=== PATIENT | male | born 1950 | race Caucasian/White ===

== ENCOUNTER 2018-11-18 05:39 | Inpatient (IN) | payer MEDICARE, BC ==
[2018-11-18 06:52] LABS: ADD MAN DIFF? NO
[2018-11-18] MEDS ORDERED: HEPARIN 1000 UNITS/ML 10 ML INJ (06:54)
[2018-11-18] MEDS ORDERED: VERAPAMIL 5 MG INJ (06:54)
[2018-11-18] MEDS ORDERED: NITROGLYCERIN (IC) 100 MCG/ML INJ (06:54)
[2018-11-18] MEDS ORDERED: IODIXANOL LOCM 100 ML BTL ×2 (06:54→11:19)
[2018-11-18] MEDS ORDERED: LIDOCAINE 1% (MDV) 20 ML INJ (06:54)
[2018-11-18 06:55] LABS: BASOPHILS % 0.7 % (0.0-2.0); EOSINOPHILS # 0.4 10^3/ul (0.0-0.5); EOSINOPHILS % 6.3 % (0.0-7.0); HEMATOCRIT 49.1 % (42.0-52.0); HEMOGLOBIN 16.9 g/dl (14.0-18.0); LYMPHOCYTES # 2.2 10^3/ul (0.8-2.9); MEAN CORPUSCULAR HEMOGLOBIN 31.6 pg (29.0-33.0); MEAN CORPUSCULAR HGB CONC 34.4 g/dl (32.0-37.0); MEAN CORPUSCULAR VOLUME 91.8 fl (82.0-101.0); MEAN PLATELET VOLUME 11.4 fl (7.4-10.4); MONOCYTE # 0.4 10^3/ul (0.3-0.9); MONOCYTES % 7.4 % (0.0-11.0); NEUTROPHIL # 2.7 10^3/ul (1.6-7.5); NEUTROPHILS % 47.1 % (39.0-77.0); PLATELET COUNT 174 10^3/UL (140-415); RED BLOOD COUNT 5.35 10^6/ul (4.70-6.10); RED CELL DISTRIBUTION WIDTH 12.2 % (11.5-14.5)
[2018-11-18 06:55] LABS: WHITE BLOOD COUNT 5.7 10^3/ul (4.8-10.8)
[2018-11-18 07:02] LABS: ANION GAP 10 (5-13); BLOOD UREA NITROGEN 16 mg/dl (7-20); CALCIUM 9.4 mg/dl (8.4-10.2); CARBON DIOXIDE 23 mmol/L (21-31); CHLORIDE 107 mmol/L (97-110); CREATININE 0.75 mg/dl (0.61-1.24); Estimated GFR > 60 mL/min (>60); GLUCOSE 116 mg/dl (70-220); POTASSIUM 4.3 mmol/L (3.5-5.1); SODIUM 140 mmol/L (135-144)
[2018-11-18] MEDS ORDERED: MIDAZOLAM 1 MG/ML 2 ML INJ (07:24)
[2018-11-18 07:31] LABS: INR 0.94; PARTIAL THROMBOPLASTIN TIME 32.7 Sec (23.0-35.0); PROTIME 12.7 Sec (11.9-14.9)
[2018-11-18] MEDS ORDERED: BIVALIRUDIN 250MG /NS 50 ML 50 ML IVPB ×2 (07:51→08:39)
[2018-11-18] MEDS ORDERED: ADENOSINE 30 ML (07:54)
[2018-11-18] MEDS ORDERED: TICAGRELOR 90 MG TABLET (08:08)
[2018-11-18] MEDS ORDERED: ASPIRIN 325 MG TAB (08:09)
[2018-11-18] MEDS ORDERED: FENTAnyl 50 MCG/ML VIAL (08:58)
[2018-11-18] MEDS ORDERED: ACETAMINOPHEN 325 MG TAB PO (09:00)
[2018-11-18] MEDS: METOPROLOL (XL) 25 MG TAB PO (09:45)
[2018-11-18] MEDS: SOD CHLORIDE 0.9% 1,000 ML IV ×2 (10:53→22:00)
[2018-11-18] MEDS ORDERED: IOHEXOL 350MG/ML 50 ML BTL (11:19)
[2018-11-18] MEDS: INSULIN ASPART [NOVOLOG] 3 ML PEN SC ×3 (12:00→21:00)
[2018-11-18] MEDS ORDERED: GLUCOSE GEL 15 GRAM TUBE PO ×2 (12:30)
[2018-11-18] MEDS ORDERED: GLUCOSE GEL 15 GRAM TUBE BUCCAL (12:30)
[2018-11-18] MEDS ORDERED: DEXTROSE 50% 50 ML SYRINGE IV ×2 (12:30)
[2018-11-18] MEDS ORDERED: GLUCAGON 1 MG INJ IM (12:30)
[2018-11-18] MEDS: FAMOTIDINE 20 MG TAB PO (12:41)
[2018-11-18] MEDS: ATORVASTATIN 20 MG TAB PO (21:13)
[2018-11-18] MEDS: TICAGRELOR 90 MG TABLET PO (21:18)
[2018-11-19] MEDS: ACCUCHECK AT 2AM (Patients on SS coverage) XX (01:38)
[2018-11-19 05:46] LABS: ADD MAN DIFF? NO
[2018-11-19 05:49] LABS: BASOPHIL # 0.1 10^3/ul (0.0-0.1); BASOPHILS % 0.9 % (0.0-2.0); EOSINOPHILS # 0.3 10^3/ul (0.0-0.5); EOSINOPHILS % 5.5 % (0.0-7.0); HEMATOCRIT 49.1 % (42.0-52.0); HEMOGLOBIN 16.6 g/dl (14.0-18.0); LYMPHOCYTES # 1.9 10^3/ul (0.8-2.9); LYMPHOCYTES % 31.8 % (15.0-51.0); MEAN CORPUSCULAR HEMOGLOBIN 31.1 pg (29.0-33.0); MEAN CORPUSCULAR HGB CONC 33.8 g/dl (32.0-37.0); MEAN CORPUSCULAR VOLUME 92.1 fl (82.0-101.0); MEAN PLATELET VOLUME 11.1 fl (7.4-10.4); MONOCYTE # 0.4 10^3/ul (0.3-0.9); MONOCYTES % 7.6 % (0.0-11.0); NEUTROPHIL # 3.1 10^3/ul (1.6-7.5); NEUTROPHILS % 53.7 % (39.0-77.0); PLATELET COUNT 161 10^3/UL (140-415); RED BLOOD COUNT 5.33 10^6/ul (4.70-6.10); RED CELL DISTRIBUTION WIDTH 12.1 % (11.5-14.5)
[2018-11-19 05:49] LABS: WHITE BLOOD COUNT 5.8 10^3/ul (4.8-10.8)
[2018-11-19 06:16] LABS: ANION GAP 9 (5-13); BLOOD UREA NITROGEN 15 mg/dl (7-20); CALCIUM 9.6 mg/dl (8.4-10.2); CARBON DIOXIDE 25 mmol/L (21-31); CHLORIDE 108 mmol/L (97-110); CREATININE 0.83 mg/dl (0.61-1.24); Estimated GFR > 60 mL/min (>60); GLUCOSE 118 mg/dl (70-220); MAGNESIUM 2.1 mg/dl (1.7-2.5); PHOSPHORUS 3.5 mg/dl (2.5-4.9); POTASSIUM 4.5 mmol/L (3.5-5.1); SODIUM 142 mmol/L (135-144)
[2018-11-19] MEDS: ASPIRIN 81 MG TAB PO (08:14)
[2018-11-19] MEDS: METOPROLOL (XL) 25 MG TAB PO (08:14)
[2018-11-19] MEDS: FAMOTIDINE 20 MG TAB PO (08:15)
[2018-11-19] MEDS: TICAGRELOR 90 MG TABLET PO (08:19)
[2018-11-19] MEDS: INSULIN ASPART [NOVOLOG] 3 ML PEN SC (08:26)
== END 2018-11-19 10:17 | disposition home or self-care (01) | DRG 247 ==
LOC: CCL 05:39 → SDS 05:39 → ICU 09:18 → CCL 08:57 → ICU 08:58
PROC: 027035Z Dilation of Coronary Artery, One Artery with Two Drug-eluting Intraluminal Devices, Percutaneous Approach (ICD-10-PCS; principal; 2018-11-18 07:07)
PROC: 4A023N7 Measurement of Cardiac Sampling and Pressure, Left Heart, Percutaneous Approach (ICD-10-PCS; 2018-11-18 07:07)
PROC: B211YZZ Fluoroscopy of Multiple Coronary Arteries using Other Contrast (ICD-10-PCS; 2018-11-18 07:07)
PROC: 4A033BC Measurement of Arterial Pressure, Coronary, Percutaneous Approach (ICD-10-PCS; 2018-11-18 07:07)
DX: I25.10 Atherosclerotic heart disease of native coronary artery without angina pectoris (principal); I10 Essential (primary) hypertension; E78.5 Hyperlipidemia, unspecified; E11.9 Type 2 diabetes mellitus without complications; I49.3 Ventricular premature depolarization; Z79.84 Long term (current) use of oral hypoglycemic drugs; Z87.891 Personal history of nicotine dependence
CPT/HCPCS: 80048; 82962; 83735; 84100; 85025; 85610; 85730; 87081; 93454; 93571